=== PATIENT | female | born 1975 | race Caucasian/White ===

== ENCOUNTER 2018-03-09 00:12 | Emergency (ER) | payer SELFPAY ==
[2018-03-09] MEDS ORDERED: BENADRYL PO ONE ×2 (02:37→02:38)
--- NOTE | 2018-03-09 03:57 | Emergency Department Report ---
ED Rash HPI - HPI Chief Complaint: Allergic Reaction Stated Complaint: ALLERGIC REACTION Time Seen by Provider: 03/09/18 03:51 Suspected Cause: Food (dragon fruit around 10 PM) Rash Symptoms: Yes Itching, No Facial Swelling, No Tongue/Oral Swelling, No Breathing Difficulties, No Choking Sensation, No Wheezing/Dyspnea, No Peeling Other History: 42-year-old female comes in for generalized rash. She reports that she has allergic reaction to dragon fruit around 10 PM tonight. Patient complains of swelling itching. She reports she had a little bit of shortness of breathing earlier. She reports that the Benadryl did not help. She has no primary care provider. No known drug allergies that she is aware of no past medical history currently takes no medications on a daily basis. ED Review of Systems ROS: Stated complaint: ALLERGIC REACTION Other details as noted in HPI Comment: All other systems reviewed and negative ED Past Medical Hx - Past Medical History Previous Medical History?: No Hx Hypertension: No Hx Diabetes: No Hx Deep Vein Thrombosis: No Hx Renal Disease: No Hx Sickle Cell Disease: No Hx Seizures: No Hx Asthma: No Hx HIV: No - Surgical History Past Surgical History?: No - Social History Smoking Status: Never Smoker Substance Use Type: None - Medications Home Medications: Home Medications Medication Instructions Recorded Confirmed Last Taken Type HYDROcodone/APAP 7.5-325 [[place] 1 each PO Q6HR PRN #12 tablet 12/08/17 Unknown Rx 7.5/325] Ibuprofen [Motrin 600 MG tab] 800 mg PO Q8H PRN 12/08/17 12/08/17 Unknown History Penicillin V Potassium 500 mg PO Q8H 10 Days #30 tablet 12/08/17 Unknown Rx EPINEPHrine [Epipen 2-Jimmie] 0.3 mg IM ONCE #2 pen 03/09/18 Unknown Rx Prednisone [predniSONE 5 mg (6-Day 5 mg PO .TAPER #1 tab.ds.pk 03/09/18 Unknown Rx Pack, 21 Tabs)] Rash Exam - Exam General: Vital signs noted. No distress. Alert and acting appropriately. HEENT: No Periorbital Edema, No Conjuctival Injection, No Chemosis, No Perioral Edema, No Tongue Edema, No Uvular Edema, No Compromised Airway, No Drooling Lungs: Yes Good Air Exchange (Normal Breath Sounds), No Wheezes, No Ronchi, No Stridor, No Cough, No Labored Respirations, No Retractions, No Use of Accessory Muscles, No Other Abnormal Lung Sounds Heart: Yes Regular, No Murmur Skin: Yes Other (mild petechiae lesions, back, face, ankle), No Urticarial Rash Other: Positive: Abdomen Normal, Neurologic Normal ED Course Vital Signs 03/09/18 02:26 Temperature 97.8 F Pulse Rate 56 L Respiratory 16 Rate Blood Pressure 119/77 O2 Sat by Pulse 94 Oximetry ED Medical Decision Making - Medical Decision Making She has been evaluated by this provider fast track. Prednisone 40 mg given. Patient was given Benadryl in triage. Critical care attestation.: If time is entered above; I have spent that time in minutes in the direct care of this critically ill patient, excluding procedure time. ED Disposition Clinical Impression: Allergic to food Disposition: DC-01 TO HOME OR SELFCARE Is pt being admited?: No Does the pt Need Aspirin: No Condition: Stable Instructions: Food Allergy (ED) Additional Instructions: Please take medication as prescribed. Please use EpiPen as needed. These follow-up with the primary care provider if her symptoms persist or gets worse. Prescriptions: EPINEPHrine [Epipen 2-Jimmie] 0.3 mg IM ONCE #2 pen Prednisone [predniSONE 5 mg (6-Day Pack, 21 Tabs)] 5 mg PO .TAPER #1 tab.[place] Referrals: PRIMARY CARE, [Primary Care Provider] - 3-5 Days [facility] [Provider Group] - 3-5 Days
[2018-03-09] MEDS ORDERED: DELTASONE PO ONE (04:00)
[2018-03-09 04:31] VITALS: BP 120/72
== END 2018-03-09 04:31 | disposition home or self-care (01) ==
LOC: ED 00:12
DX: T78.1XXA Other adverse food reactions, not elsewhere classified, initial encounter (principal); X58.XXXA Exposure to other specified factors, initial encounter
CPT/HCPCS: 99282; J7512